=== PATIENT | female | born 1930 | race Caucasian/White ===

== ENCOUNTER 2018-05-30 12:04 | Emergency (ER) | payer OTHER ==
[~2018-05-30] VITALS: Ht 157.5 cm; Wt 86.2 kg
[~2018-05-30 12:04] MED LIST: ADULT ASPIRIN81 MG; ATENOLOL50 MG; COZAAR100 MG; CRESTOR40 MG; LEVSIN/SL0.125 MG SL; NEURONTIN300 MG; PEPCID40 MG PO; PLAVIX75 MG; SYNTHROID100 MCG; TUSSI PRES-B L120 M1 PO; ZITHROMAX200 MG PO; ZOFRAN4 MG PO
[2018-05-30] MEDS ORDERED: ATENOLOL25 GM (12:46)
[2018-05-30] MEDS ORDERED: LANTUS SOL100 UNIT/1 (12:46)
== END 2018-05-30 17:05 | disposition home or self-care (01) ==
LOC: ER 12:04
DX: J40 Bronchitis, not specified as acute or chronic (principal)

== ENCOUNTER 2019-03-19 18:51 | Emergency (ER) | payer OTHER ==
[~2019-03-19] VITALS: Ht 157.5 cm; Wt 90.7 kg
[~2019-03-19 18:51] MED LIST changes: +ATENOLOL25 GM; +LANTUS SOL100 UNIT/1
[2019-03-19] MEDS ORDERED: JARDIANCE25 MG (19:05)
[2019-03-19] MEDS ORDERED: PROTONIX20 MG (19:06)
[2019-03-19] MEDS ORDERED: AMLODIPINE (19:06)
== END 2019-03-20 11:50 | disposition home or self-care (01) ==
LOC: ER 18:51
DX: N20.1 Calculus of ureter (principal); R10.31 Right lower quadrant pain; N23 Unspecified renal colic; I49.3 Ventricular premature depolarization